=== PATIENT | female | born 1940 | race Caucasian/White ===

== ENCOUNTER 2016-12-05 10:00 | Day surgery (SDC) | payer MEDICARE, BC ==
[2016-11-29 10:11] VITALS: BMI 34.3
--- NOTE | 2016-12-04 15:26 | HP ---
DATE OF ADMISSION: 12/05/2016 Claudia Espitia is a 76-year-old patient seen with progressive right knee pain. After having treatment options discussed, she elected to proceed with right knee arthroscopy. Consent regarding the procedure was obtained. Clearance was provided by Dr. Pete Chapa. Past medical history is asthma, hypercholesterolemia, hypertension, osteoarthritis. Past surgical history is knee arthroscopy. DAILY MEDICATIONS: 1. Amlodipine. 2. Aspirin. 3. Lovastatin. 4. Omeprazole. 5. Celebrex. Allergies are SEPTRA and MOTRIN. SOCIAL HISTORY: Patient denies tobacco use. Physical evaluation right knee: Range of motion was 0 to 125 degrees, tenderness along the medial and lateral joint lines. Positive medial Mirna's. Ligaments stable. Hip rotation without pain. Distal neurovascular exam intact, patellar crepitus with range of motion. Radiographs of the right knee revealed moderate medial and severe patellofemoral compartment osteoarthritis. An MRI of the right knee revealed medial meniscal tear. IMPRESSION: 1. Internal major right knee with medial meniscal tear. 2. Right knee osteoarthritis. PLAN: Right knee arthroscopy with partial meniscectomy and debridement.
[~2016-12-05 10:00] MED LIST: DEXAMETHASONE SOD PHOSPHATE 10 MG/ML 1 ML VIAL IV ONE; LACTATED RINGERS 1,000 ML IV SCH; LIDOCAINE 1% 20 ML VIAL (10MG/ML) FOR IV START INTRADERMA PRN; ONDANSETRON 4 MG/2 ML VIAL IVP ONE; ceFAZolin 2 GM in SODIUM CHLORIDE 0.9% 100 ML IVPB ONE
[2016-12-05] MEDS ORDERED: SUCCINYLCHOLINE CHLORIDE 100 MG/5 ML SYR IV ONE (12:20)
[2016-12-05] MEDS ORDERED: LIDOCAINE 1% INJ 10MG/ML (20 ML MDV) ONE (12:20)
[2016-12-05] MEDS ORDERED: MIDAZOLAM 2 MG/2 ML VIAL ONE (12:20)
[2016-12-05] MEDS ORDERED: HYDROmorphone (PF) 1 MG/ML ONE (12:20)
[2016-12-05] MEDS ORDERED: fentaNYL (PF) 50 MCG/ML 2 ML AMP ONE (12:20)
[2016-12-05] MEDS ORDERED: PROPOFOL 10 MG/ML 20 ML VIAL IV ONE (12:20)
[2016-12-05] MEDS ORDERED: BUPIVACAIN-EPI 0.25%-1:200,000 30 ML VIAL SQ ONE (12:43)
--- NOTE | 2016-12-05 13:17 | P.OP ---
Date of Procedure: 12/05/16 Preoperative Diagnosis: Internal derangement right knee Postoperative Diagnosis: 1. Tear medial and lateral meniscus right knee 2. Grade 2/3 chondromalacia medial femoral condyle right knee 3. 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 Reactive synovitis medial and suprapatellar compartments right knee Procedure(s) Performed: 1. Arthroscopic partial medial and lateral meniscectomy right knee 2. Arthroscopic chondroplasty medial femoral condyle right knee 3. Arthroscopic chondroplasty patella right knee 4. Arthroscopic partial synovectomy medial and suprapatellar compartments right knee Implants: Anesthesia: GETA, local Surgeon: Richard Laguna Estimated Blood Loss (ml): 5 Pathology: none sent Condition: stable Disposition: PACU Indications for Procedure: 76-year-old patient seen with progressive right knee pain. After having treatment options discussed, she elected to proceed with right knee arthroscopy. Operative Findings: See description of procedure Description of Procedure: Patient was taken to the operative suite. Patient underwent a general anesthetic by the department of anesthesia. Patient was given preoperative antibiotics. The right lower extremity was placed in a well-padded arthroscopic leg zhu. The right leg was prepped and draped in the normal sterile orthopedic fashion. A lateral parapatellar and suprapatellar incision was made. Trochars were inserted. Arthroscopy was initiated. Suprapatellar pouch revealed thick reactive synovitis. The patellofemoral joint appeared to articulate congruently. There were grade 2/3 chondromalacia changes of the patella and femoral sulcus. More medially and the femoral sulcus we could see areas of grade 4 chondromalacia but no osteochondral tears there.. The scope was guided into the medial gutter. No loose bodies or plica identified. The scope was then guided into the medial compartment. A medial parapatellar incision was made. Trocar inserted followed by probe. There was a complex tear involving the posterior horn which did extend into the midbody area. There were grade 2/3 chondral malacia changes of the medial femoral condyle and grade 3/4 chondromalacia changes of the medial aspect tibial plateau. Some reactive synovitis noted anteriorly. No loose bodies. A partial medial meniscectomy was performed on a stable tissue. I performed a chondroplasty medial femoral condyle down to stable tissue. A partial synovectomy was performed. The residual meniscus was found to be stable as was the residual osteochondral surface medial femoral condyle. Scope and probe were then guided into the intercondylar notch. Cruciates were identified, probed and found to be stable. The scope and probe were then guided into lateral compartment. There was a radial tear involving the midbody area of the lateral meniscus. There were grade 1 chondromalacia changes of the tibial plateau. No loose bodies. A partial lateral meniscectomy was performed on a stable tissue. The residual meniscus was probed and found to be stable. The scope was in guided back into the suprapatellar compartment. I introduced a motorized shaver into the super compartment. I debrided some piecemeal fragments of meniscus I encountered. I performed a chondroplasty of patella. I performed a partial synovectomy. Shaver was removed. Instruments were now removed from the joint. The joint was infiltrated with .25% Marcaine. Steri-Strips were applied to the portal sites. Sterile dressings were applied. The patient was placed into a HANY hose. No tourniquet was utilized. The patient was awakened, transferred to a bed and taken to recovery stable satisfactory condition.
[2016-12-05 13:29] VITALS: TEMP 98.4
[2016-12-05] MEDS: HYDROmorphone 1 MG/ML 1 ML SYRINGE IVP PRN ×4 (13:40→14:21)
[2016-12-05 13:41] VITALS: RESP 16
[2016-12-05] MEDS ORDERED: LACTATED RINGERS 1,000 ML IV ONE (14:33)
[2016-12-05 16:12] VITALS: BP 112/68; PULSE 73
== END 2016-12-05 16:46 | disposition home or self-care (01) ==
LOC: OR 10:00
PROVIDERS: ATTEND Orthopaedic Surgery
DX: S83.241A Other tear of medial meniscus, current injury, right knee, initial encounter (principal); S83.281A Other tear of lateral meniscus, current injury, right knee, initial encounter; M22.41 Chondromalacia patellae, right knee; M65.861 Other synovitis and tenosynovitis, right lower leg; J45.909 Unspecified asthma, uncomplicated; E78.00 Pure hypercholesterolemia, unspecified; I10 Essential (primary) hypertension; K21.9 Gastro-esophageal reflux disease without esophagitis; Z79.82 Long term (current) use of aspirin; Z79.891 Long term (current) use of opiate analgesic; Z79.899 Other long term (current) drug therapy
CPT/HCPCS: 29880; J2250; J1100; J0690; J2405; J2001; J3010; J1170; J0330; J2704

== ENCOUNTER → 2024-04-16 | Outpatient (CLI) | payer MEDICARE ==
--- NOTE | 2024-04-16 14:24 | MM ---
Reason for Exam: Additional evaluation requested from prior study. Last mammogram was performed 1 year(s) and 3 month(s) ago. Patient History: Menarche at age 17. First Full-Term at age 23. Postmenopausal. Breast cancer, right, age 82. 2022, Mastectomy on the Left side. 02/12/2023, MG pre op needle loc LT - 2 on the Left side. Tissue Density: Right: There are scattered areas of fibroglandular density. Findings: Analyzed By CAD. No evidence for mass or distortion. No suspicious consultations present. Overall Assessment: Benign, BI-RAD 2 Management: Diagnostic Mammogram of the right breast in 1 year. . Results were given to the patient verbally at the time of exam. Patient should continue monthly self-breast exams. A clinical breast exam by your physician is recommended on an annual basis. This exam should not preclude additional follow-up of suspicious palpable abnormalities. Note on Cassidy scores and lifetime risk: 1. A Cassidy score greater than 3% is considered moderate risk. If this is the case, consider specialist referral to assess eligibility for a risk reducing agent. 2. If overall lifetime risk for the development of breast cancer is 20% or higher, the patient may qualify for future screening with alternating mammogram and breast MRI. [facility], , 04/16/2024 1:59 PM. Electronically signed and approved by: Neal Fernandez M.D. Radiolog[facility]
== END | disposition home or self-care (01) ==
LOC: RADMAMWWP 13:28
PROVIDERS: ATTEND Family Medicine
DX: Z85.3 Personal history of malignant neoplasm of breast
CPT/HCPCS: 77061; 77065